=== PATIENT | male | born 1985 | race Caucasian/White ===

== ENCOUNTER 2018-05-14 02:44 | Emergency (ER) | payer OTHER ==
[2018-05-14] MEDS ORDERED: ONDANSETRON 4 MG/2 ML VIAL IVP ONE (02:52)
[2018-05-14] MEDS ORDERED: NS 1,000 ML IV ONE ×3 (02:52→04:22)
--- NOTE | 2018-05-14 02:53 | EDPHY ---
H & P Time Seen by Provider: 05/14/18 02:52 HPI/ROS: HPI CHIEF COMPLAINT: Nausea, vomiting, diarrhea. HISTORY OF PRESENT ILLNESS: 33-year-old male otherwise healthy, presents emergency room nausea vomiting and diarrhea for the past 48 hr. Patient has not had any fever. Denies any significant abdominal pain. Main complaint ongoing nausea vomiting and diarrhea. Denies chest pain or shortness of breath. Watery diarrhea no blood. States that prior to this he ate bad pizza as well as had a large amount of alcohol to drink. 2 days ago he started vomiting. Past Medical History: Denies significant medical history Past Surgical History: Denies significant surgical history Social History: Smokes marijuana, and recently had a large amount of alcohol to drink whiskey. Family History: Noncontributory ROS REVIEW OF SYSTEMS: 10 Systems were reviewed and negative with the exception of the elements mentioned in the history of present illness. Exam Constitutional nontoxic no acute distress, triage nursing summary reviewed, vital signs reviewed, awake/alert. Eyes normal conjunctivae and sclera, EOMI, PERRLA. HENT normal inspection, atraumatic, moist mucus membranes, no epistaxis, neck supple/ no meningismus, no raccoon eyes. Respiratory clear to auscultation bilaterally, normal breath sounds, no respiratory distress, no wheezing. Cardiovascular rate normal, regular rhythm, no murmur, no edema, distal pulses normal. Gastrointestinal soft, non-tender, no rebound, no guarding, normal bowel sounds, no distension, no pulsatile mass. Genitourinary no CVA tenderness. Musculoskeletal no midline vertebral tenderness, full range of motion, no calf swelling, no tenderness of extremities, no meningismus, good pulses, neurovascularly intact. Skin pink, warm, & dry, no rash, skin atraumatic. Neurologic awake, alert and oriented x 3, AAOx3, moves all 4 extremities equally, motor intact, sensory intact, CN II-XII intact, normal cerebellar, normal vision, normal speech. Psychiatric normal mood/affect. Heme/Lymph/Immune no lymphadenopathy. Differential Diagnosis: Differential diagnosis includes but is not limited to and in no particular order: Bowel obstruction, appendicitis, gallbladder disease, diverticulitis, colitis, enteritis, perforated viscus, gastritis, GERD , esophagitis, urinary tract infection, pyelonephritis, kidney stones Medical Decision Making: Plan for this patient IV establishment IV fluid bolus , Zofran as needed for nausea vomiting, basic blood work, re-evaluate. Re-evaluation: CT scan abdomen pelvis with IV contrast called to me by Dr. Heredia. Negative for acute appendicitis. Enteritis present. Labs reviewed so hemoconcentration. 0704: Patient re-evaluated this time resting comfortably in no acute distress. Patient is not vomiting. Abdomen reexamine is soft nontender. Doing well. Patient is eager for discharge. Patient p.o. Challenge well. Return precautions discussed with the patient return emergency room if worsening abdominal pain, fever, vomiting. [place] diet today. Source: Patient, EMS Constitutional: Initial Vital Signs Temperature (C) 36.6 C 05/14/18 03:07 Heart Rate 90 05/14/18 03:07 Respiratory Rate 20 05/14/18 03:07 Blood Pressure 152/55 H 05/14/18 03:07 O2 Sat (%) 98 05/14/18 03:07 O2 Delivery Mode Nasal Cannula O2 (L/minute) 2 Allergies/Adverse Reactions: penicillin G Allergy (Severe, Verified 05/14/18 03:07) Home Medications: Medication Instructions Recorded NK [No Known Home Meds] 05/14/18 Medical Decision Making - Data Points Laboratory Results: Laboratory Results 05/14/18 02:55 05/14/18 02:55 05/14/18 05/14/18 05/14/18 06:05 02:55 02:55 WBC 20.15 10^3/uL H 10^3/uL (3.80-9.50) RBC 5.96 10^6/uL 10^6/uL (4.40-6.38) Hgb 19.9 g/dL H g/dL (13.7-17.5) Hct 54.9 % H % (40.0-51.0) MCV 92.1 fL fL (81.5-99.8) MCH 33.4 pg pg (27.9-34.1) MCHC 36.2 g/dL g/dL (32.4-36.7) RDW 11.5 % % (11.5-15.2) Plt Count 346 10^3/uL 10^3/uL (150-400) MPV 9.6 fL fL (8.7-11.7) Neut % (Auto) 83.8 % H % (39.3-74.2) Lymph % (Auto) 6.3 % L % (15.0-45.0) Wirt % (Auto) 9.2 % % (4.5-13.0) Eos % (Auto) 0.0 % L % (0.6-7.6) Baso % (Auto) 0.2 % L % (0.3-1.7) Nucleat RBC Rel Count 0.0 % % (0.0-0.2) Absolute Neuts (auto) 16.89 10^3/uL H 10^3/uL (1.70-6.50) Absolute Lymphs (auto) 1.27 10^3/uL 10^3/uL (1.00-3.00) Absolute Monos (auto) 1.85 10^3/uL H 10^3/uL (0.30-0.80) Absolute Eos (auto) 0.00 10^3/uL L 10^3/uL (0.03-0.40) Absolute Basos (auto) 0.04 10^3/uL 10^3/uL (0.02-0.10) Absolute Nucleated RBC 0.00 10^3/uL 10^3/uL (0-0.01) Immature Gran % 0.5 % % (0.0-1.1) Immature Gran # 0.10 10^3/uL 10^3/uL (0.00-0.10) RBC/WBC/PLT Morphology TNP Platelet Estimate TNP Sodium 138 mEq/L mEq/L (135-145) Potassium 3.6 mEq/L mEq/L (3.5-5.2) Chloride 88 mEq/L L mEq/L (97-110) Carbon Dioxide 23 mEq/l mEq/l (22-31) Anion Gap 27 mEq/L H mEq/L (6-14) BUN 31 mg/dL H mg/dL (7-23) Creatinine 1.4 mg/dL H mg/dL (0.7-1.3) Estimated GFR 59 Glucose 119 mg/dL H mg/dL (70-100) Calcium 10.8 mg/dL H mg/dL (8.5-10.4) Phosphorus 4.9 mg/dL H mg/dL (2.5-4.5) Total Bilirubin 1.4 mg/dL mg/dL (0.1-1.4) Conjugated Bilirubin 0.4 mg/dL mg/dL (0.0-0.5) Unconjugated Bilirubin 1.0 mg/dL mg/dL (0.0-1.1) AST 61 IU/L H IU/L (17-59) ALT 24 IU/L IU/L (21-72) Alkaline Phosphatase 101 IU/L IU/L (38-126) Total Protein 9.7 g/dL H g/dL (6.3-8.2) Albumin 5.9 g/dL H g/dL (3.5-5.0) Lipase 60 IU/L IU/L (23-300) Urine Color YELLOW Urine Appearance CLEAR Urine pH 6.0 (5.0-7.5) Ur Specific [place] > 1.035 H (1.002-1.030) Urine Protein NEGATIVE (NEGATIVE) Urine Ketones 1+ H (NEGATIVE) Urine Blood NEGATIVE (NEGATIVE) Urine Nitrate NEGATIVE (NEGATIVE) Urine Bilirubin NEGATIVE (NEGATIVE) Urine Urobilinogen NEGATIVE EU EU (0.2-1.0) Ur Leukocyte Esterase NEGATIVE (NEGATIVE) Urine Glucose NEGATIVE (NEGATIVE) Medications Given: Discontinued Medications Sodium Chloride (Ns) 1,000 mls @ 0 mls/hr IV EDNOW ONE; Wide Open PRN Reason: Protocol Stop: 05/14/18 02:53 Last Admin: 05/14/18 03:00 Dose: 1,000 mls Sodium Chloride (Ns) 1,000 mls @ 0 mls/hr IV EDNOW ONE; Wide Open PRN Reason: Protocol Stop: 05/14/18 02:53 Last Admin: 05/14/18 03:04 Dose: 1,000 mls Sodium Chloride (Ns) 1,000 mls @ 0 mls/hr IV ONCE ONE PRN Reason: Wide Open Stop: 05/14/18 04:23 Last Admin: 05/14/18 04:42 Dose: 1,000 mls Ondansetron HCl (Zofran) 4 mg IVP EDNOW ONE Stop: 05/14/18 02:53 Last Admin: 05/14/18 03:04 Dose: 4 mg Promethazine HCl (Phenergan) 6.25 mg IVP ONCE ONE Stop: 05/14/18 04:30 Last Admin: 05/14/18 04:43 Dose: 6.25 mg Departure - Departure Disposition: Home, Routine, Self-Care Clinical Impression: Vomiting, Diarrhea Condition: Good Instructions: Dehydration (ED), Acute Nausea and Vomiting (ED), Acute Diarrhea (ED) Additional Instructions: 1. [place] diet over the next 24-48 hours 2. Return emergency room if worsening abdominal pain, fever, vomiting Referrals: Patient,NotPresent [Unknown] - As per Instructions
[2018-05-14 03:09] LABS: PLATELET COUNT 346 10^3/uL (150-400)
[2018-05-14] MEDS ORDERED: IOPAMIDOL (ISOVUE 370) 100 ML BTL IV ONE (03:22)
[2018-05-14] MEDS ORDERED: PROMETHAZINE HCL 25 MG/ML INJ IVP ONE (04:29)
[2018-05-14 07:03] VITALS: BP 124/74
[2018-05-14] MEDS ORDERED: ONDANSETRON 4MG PREPACK#2 BTL TAKEHOME ONE (07:06)
== END 2018-05-14 07:25 | disposition home or self-care (01) ==
LOC: MERGE 02:44
DX: R11.2 Nausea with vomiting, unspecified (principal); R19.7 Diarrhea, unspecified; E86.9 Volume depletion, unspecified; Z88.0 Allergy status to penicillin
CPT/HCPCS: 96374; J2405; J2550; Q9967